=== PATIENT | female | born 1955 | race Caucasian/White ===

== ENCOUNTER 2018-10-27 21:40 | Emergency (ER) | payer BC ==
[~2018-10-27] VITALS: Ht 162.6 cm; Wt 83.9 kg
[~2018-10-27 21:40] MED LIST: IMITREX 50 MG T50 MG; XANAX 0.25 MG0.25 MG PO
[2018-10-28] MEDS ORDERED: NORCO 5-325 TA1 EAC1 PO (02:07)
[2018-10-28 02:24] VITALS: BP 138/58
== END 2018-10-28 02:24 | disposition home or self-care (01) ==
LOC: ER 21:40
DX: S82.144A Nondisplaced bicondylar fracture of right tibia, initial encounter for closed fracture (principal); F41.9 Anxiety disorder, unspecified; D25.9 Leiomyoma of uterus, unspecified; Z98.890 Other specified postprocedural states; Z90.49 Acquired absence of other specified parts of digestive tract; Z88.6 Allergy status to analgesic agent; W18.39XA Other fall on same level, initial encounter; Y93.89 Activity, other specified; Y92.89 Other specified places as the place of occurrence of the external cause; Y99.8 Other external cause status